=== PATIENT | female | born 1955 | race Caucasian/White ===

== ENCOUNTER 2017-01-01 08:51 | Day surgery (SDC) | payer OTHER ==
[~2017-01-01] VITALS: Ht 162.6 cm; Wt 77.1 kg
[~2017-01-01 08:51] MED LIST: 0.9% Sodium Chloride 1,000 ML IV SCH; ASPI-973 PO; ATEN50TA PO; ATRV10T PO; Sodium Chloride LOK Flush 10 mL Syringe IV PRN; TRIA1CAP5 PO; fentaNYL-PF 50 mCg/mL 2 mL Inj IVPUSH PRN
[2017-01-01 09:29] VITALS: BP 157/83; PULSE 54; RESP 16; O2SAT 95
[2017-01-01 10:43] VITALS: BP 139/89; PULSE 56; RESP 12; O2SAT 98
[2017-01-01 10:51] VITALS: BP 136/76; PULSE 54; RESP 12; O2SAT 95
[2017-01-01 10:58] VITALS: BP 143/71; PULSE 54; RESP 12; O2SAT 96
--- NOTE | 2017-01-01 15:49 | ENDO ---
[address] [address] ENDOSCOPY PROCEDURE PATIENT: BOOKER MERAZ : 1955 MR#: [id number] ADMIT: 01/01/2017 JOB ID: [id number] DATE: 01/01/2017 PROCEDURE: Colonoscopy. INDICATION: Screening. Patient's ASA classification is two. Mallampati score is two. MEDICATIONS: Versed 6 mg, Fentanyl 125 mcg. INSTRUMENT USED: PCF H 190 DL. PREPARATION QUALITY: Fair. PROCEDURE DETAILS: After informed consent was obtained, the patient was brought into the GI suite, where she was placed on oxygen via nasal cannula and monitored with continuous pulse oximeter, telemetry, and blood pressure monitoring. A time-out was performed, then she was placed in the left lateral decubitus position and medications were administered for sedation. Digital rectal exam was performed which was unremarkable. The colonoscope was then inserted into the rectum and advanced under direct visualization to the cecum, which was identified by the presence of the ileocecal valve and appendiceal orifice. Once the cecum was reached, the colonoscope was withdrawn back into the rectum as the mucosa and lumen were examined. In the rectum, retroflexion was performed. Following retroflexion, the remaining air in the rectum was suctioned, and the procedure was completed. FINDINGS: 1. In the ascending colon there was an approximately 6 mm sessile polyp which appeared to be arising from a diverticulum. We gently probed the mucosa surrounding the diverticulum to expose the polyp in its entirety. Once we were able to see the polyp in its entirety, we removed the polyp with a combination of cold snare and cold biopsy forceps. 2. Scattered diverticula were seen in the ascending colon, as well as in the descending colon. 3. Prominent anal papillae were noted on retroflexion. IMPRESSION: 1. Ascending colon polyp. 2. Scattered diverticula. 3. Prominent anal papillae. RECOMMENDATIONS: 1. Repeat colonoscopy in five years. 2. Fiber rich diet. COMPLICATIONS: None. ESTIMATED BLOOD LOSS: Less than 5 mL. CC: Cynthia Covarrubias DO
--- NOTE | 2017-01-04 16:18 | PATH ---
SURGICAL PATHOLOGY Attending Physician:Ryan Hahn CASE STATUS: Signed Out PATIENT NAME: BOOKER MERAZ PID: [id number] : 1955 DATE COLLECTED:01/01/2017 15:28 SPECIMEN: Colon, Polyp CLINICAL HISTORY: 1). ASCENDING COLON POLYP FINAL DIAGNOSIS: Ascending Colon, Polyp, Biopsy: Portions of tubular adenoma x 5; negative for high-grade dysplasia. ICD10: K63.5 GROSS DESCRIPTION: The specimen is received in one formalin filled container labeled with the patient's name, sublabeled "ascending colon polyp" and consists of 5 portions of tissue which aggregate to 0.3 x 0.3 x 0.2 CM. The specimen is entirely submitted in one cassette. 01/01/2017PR ICD-9 CODES: CPT CODES: 1: 74482 Electronically Signed Out Leena Shankar MD [facility] [address], [place] [address] Technical component performed at [facility], [facility] [address], [address]
== END 2017-01-01 23:59 | disposition home or self-care (01) ==
LOC: END 08:51
PROVIDERS: ATTEND Internal Medicine Gastroenterology
DX: Z12.11 Encounter for screening for malignant neoplasm of colon (principal); D12.2 Benign neoplasm of ascending colon; K57.30 Diverticulosis of large intestine without perforation or abscess without bleeding; I10 Essential (primary) hypertension; Z85.3 Personal history of malignant neoplasm of breast; E78.5 Hyperlipidemia, unspecified